=== PATIENT | female | born 2000 | race Caucasian/White ===

== ENCOUNTER 2021-10-06 15:46 | Emergency (ER) | payer SELFPAY ==
[~2021-10-06] VITALS: Ht 175.3 cm; Wt 70.5 kg
[2021-10-06 16:11] VITALS: BP 114/77; TEMP 98.4
[2021-10-06 17:15] LABS: BASO % 0.4 % (0.0-2.0); EOS # 0.1 K/mm3 (0.0-0.7); EOS % 0.6 % (0.0-4.0); GRAN # 5.3 K/mm3 (1.4-6.5); GRAN % 53.4 % (42.2-75.2); HEMATOCRIT 40.3 % (37.0-47.0); HEMOGLOBIN 13.8 g/dl (12.5-16.0); LYMPH # 3.8 K/mm3 (1.2-3.4); LYMPH % 38.1 % (20.0-51.0); MEAN CELL VOLUME 85 fl (80.0-100.0); MEAN CORPUSCULAR HEMOGLOBIN 29 pg (27-31); MEAN CORPUSCULAR HGB CONC 34 g/dl (33.0-37.0); MONO # 0.7 K/mm3 (0.1-0.6); PLATELET COUNT 257 K/mm3 (130-400); RED BLOOD COUNT 4.74 M/mm3 (4.10-5.30); REDCELL DISTRIBUTION WIDTH-CV 12.9 % (11.5-14.5)
[2021-10-06] MEDS ORDERED: AMOXICILLIN 8751 TAB PO (17:26)
[2021-10-06] MEDS ORDERED: NORCO 325 MG-51 TAB PO (17:26)
[2021-10-06 17:30] LABS: ALBUMIN 4.1 gm/dL (3.5-5.0); BILIRUBIN,TOTAL 0.6 mg/dL (0.2-1.2); C-REACTIVE PROTEIN 2.6 mg/dL (0.00-0.50); CALCIUM 8.8 mg/dL (8.4-10.2); CREATININE, serum 0.74 mg/dL (0.57-1.11); POTASSIUM 4.4 mmol/L (3.5-4.5); TOTAL PROTEIN 7.2 gm/dL (6.2-8.1)
[2021-10-06 18:05] LABS: ERYTHROCYTE SEDIMENTATION RATE 5 mm/hr (0-20)
[2021-10-06 18:10] VITALS: PULSE 75
== END 2021-10-06 18:10 | disposition home or self-care (01) ==
LOC: COL.ER 15:46
PROVIDERS: Family Medicine
DX: L03.113 Cellulitis of right upper limb (principal); S61.031A Puncture wound without foreign body of right thumb without damage to nail, initial encounter; R79.82 Elevated C-reactive protein (CRP); Z28.310 Unvaccinated for COVID-19; W54.0XXA Bitten by dog, initial encounter; Y92.59 Other trade areas as the place of occurrence of the external cause; Y99.0 Civilian activity done for income or pay